=== PATIENT | female | born 1970 | race Caucasian/White ===

== ENCOUNTER 2017-08-14 11:36 | Emergency (ER) | payer BC, MEDICAID ==
--- NOTE | 2017-08-14 12:29 | EDM.PDOC ---
ED HPI GENERAL MEDICAL PROBLEM - General Chief Complaint: Allergic Reaction Stated Complaint: BLISTER ON LEFT THUMB Time Seen by Provider: 08/14/17 12:23 Source of Information: Reports: Patient History Limitations: Reports: No Limitations - History of Present Illness INITIAL COMMENTS - FREE TEXT/NARRATIVE: pt developed a very lrge blister on the left thumb an\d she may be developing anther in the left anticubital area. This started out itching and it now is the large blister. Onset: Other ( started yesterday. ) Duration: Hour(s): Location: Reports: Upper Extremity, Left Associated Symptoms: Reports: No Other Symptoms - Related Data Allergies Allergy/AdvReac Type Severity Reaction Status Date / Time No Known Allergies Allergy Verified 08/14/17 11:51 Home Meds: Home Meds Sulfamethoxazole/Trimethoprim [Bactrim 400-80 MG] 1 tab PO BID 08/14/17 [History ] metFORMIN [Glucophage XR] 1 tab PO DAILY 08/14/17 [History] Past Medical History Cardiovascular History: Reports: [place] Respiratory History: Reports: Asthma LATENT [employer] History: Reports: Dysfunctional Uterine Bleeding Endocrine/Metabolic History: Reports: Other (See Below) Other Endocrine/Metabolic History: prediabetic Dermatologic History: Reports: Venous Stasis Dermatitis - Infectious Disease History Infectious Disease History: Reports: Chicken Pox, Mumps - Past Surgical History Female Surgical History: Reports: D&C, Tubal Ligation Neurological Surgical History: Reports: Other (See Below) Other Neurological Surgeries/Procedures: cervical fusion Social & Family History - Tobacco Use Smoking Status *Q: Former Smoker Years of Tobacco use: 25 Used Tobacco, but Quit: Yes Month/Year Tobacco Last Used: 06/2011 Second Hand Smoke Exposure: No - Caffeine Use Caffeine Use: Reports: Soda - Recreational Drug Use Recreational Drug Use: No ED ROS ALLERGIC REACTION - Review of Systems Review Of Systems: See Below Constitutional: Reports: No Symptoms HEENT: Reports: No Symptoms Respiratory: Reports: No Symptoms Cardiovascular: Reports: No Symptoms Endocrine: Reports: No Symptoms GI/Abdominal: Reports: No Symptoms : Reports: No Symptoms Skin: Reports: Other ( pt has a large blister on the left thumb and she may be developing another. She just started sulfa yesterday and she has had 2 doses. ) Neurological: Reports: No Symptoms ED EXAM GENERAL NO PERIP PULSE - Physical Exam Exam: See Below Text/Narrative:: pt hs a large blister after taking sulfa on the left thumb. Exam Limited By: No Limitations General Appearance: Alert Extremities: Other (Pt has a large blister on the left thumb and hs a rash around the blister. She has a red spot on the left elebow area. ) Neurological: Alert, Oriented Skin Exam: Other (possible blister type rash which may be a llergic rash to sulfa. ) Course - Vital Signs Last Recorded V/S: Last Vital Signs Temp 36.6 C 08/14/17 11:57 Pulse 91 08/14/17 11:57 Resp 15 08/14/17 11:57 BP 156/100 H 08/14/17 11:57 Pulse Ox 97 08/14/17 11:57 - Re-Assessments/Exams Free Text/Narrative Re-Assessment/Exam: 08/14/17 12:30 The blister was opened with a needle and drained. a dressing with adaptic and mayco was applied. she w\ill stop using the sulfa. Departure - Departure Time of Disposition: 12:31 Disposition: Home, Self-Care 01 Condition: Fair Clinical Impression: Allergic reaction - Discharge Information Instructions: How to Use a Metered Dose Inhaler, Anaphylactic Reaction, Adult, [id number] Referrals: PCP,None [Primary Care Provider] - Forms: ED Department Discharge Care Plan Goals: Stop the sulfa, benadryl 50mg q6h, call if pt should develop alot of the blisters. keep appt with her Dr Tomorrow who is caring for her leg wounds.
== END 2017-08-14 12:43 | disposition home or self-care (01) ==
LOC: JP.ED 11:36
DX: S60.322A Blister (nonthermal) of left thumb, initial encounter (principal); T78.40XA Allergy, unspecified, initial encounter; Z88.2 Allergy status to sulfonamides; Z87.891 Personal history of nicotine dependence; X58.XXXA Exposure to other specified factors, initial encounter
CPT/HCPCS: 10140; 99283-25